=== PATIENT | female | born 1960 | race Hispanic/Latino ===

== ENCOUNTER 2017-05-26 18:46 | Emergency (ER) | payer OTHER ==
[~2017-05-26 18:46] MED LIST: ACET-2247 PO; AMLO10TA4 PO; ASCO100T12 PO; CALC-190 PO; DOCU50CA13 PO; MULT-264 PO; TRAM50TA4 PO
[2017-05-26] MEDS ORDERED: SULFAMETHOX-TMP DS 800/160 TAB ONE (19:31)
== END 2017-05-26 20:17 | disposition home or self-care (01) ==
LOC: EDH 18:46
DX: L03.818 Cellulitis of other sites (principal); I10 Essential (primary) hypertension; Z90.710 Acquired absence of both cervix and uterus; Z88.6 Allergy status to analgesic agent; Z98.890 Other specified postprocedural states

== ENCOUNTER → 2021-06-27 | Outpatient (CLI) | payer OTHER | END | disposition home or self-care (01) | LOC: RAH 10:56 | PROVIDERS: ATTEND Family Medicine | DX: Z12.31 Encounter for screening mammogram for malignant neoplasm of breast (principal) | CPT/HCPCS: 77067 ==

== ENCOUNTER → 2022-01-02 | Outpatient (CLI) | payer OTHER | END | disposition home or self-care (01) | LOC: RAH 12:56 | PROVIDERS: ATTEND Family Medicine | DX: Z12.31 Encounter for screening mammogram for malignant neoplasm of breast (principal); E78.2 Mixed hyperlipidemia; I10 Essential (primary) hypertension; E11.9 Type 2 diabetes mellitus without complications; E66.9 Obesity, unspecified; I11.9 Hypertensive heart disease without heart failure; Z13.820 Encounter for screening for osteoporosis | CPT/HCPCS: 93306; 93925 ==

== ENCOUNTER → 2022-01-09 | Outpatient (CLI) | payer OTHER | END | disposition home or self-care (01) | LOC: RAH 08:30 | PROVIDERS: ATTEND Family Medicine | DX: Z00.00 Encounter for general adult medical examination without abnormal findings (principal); E11.9 Type 2 diabetes mellitus without complications; E78.2 Mixed hyperlipidemia; I10 Essential (primary) hypertension; M06.4 Inflammatory polyarthropathy; Z12.31 Encounter for screening mammogram for malignant neoplasm of breast; Z13.220 Encounter for screening for lipoid disorders | CPT/HCPCS: 72040; 73130; 76770; 93975 ==

== ENCOUNTER → 2022-01-16 | Outpatient (CLI) | payer OTHER | END | disposition home or self-care (01) | LOC: LAB 09:45 | PROVIDERS: ATTEND Internal Medicine | DX: M06.4 Inflammatory polyarthropathy (principal) | CPT/HCPCS: 36415; 85651; 86140; 86200; 86431 ==

== ENCOUNTER 2022-04-18 06:38 | Emergency (ER) | payer OTHER ==
[~2022-04-18] VITALS: Ht 170.2 cm; Wt 102.1 kg
[2022-04-18] MEDS ORDERED: ALBUTEROL 0.083% 2.5 MG/3 ML INH IH STA (07:16)
[2022-04-18] MEDS ORDERED: DEXAMETHASONE SOD PHOSPHATE 4 MG/ML 1ML VIAL IM STA (07:16)
[2022-04-18] MEDS ORDERED: ACETAMINOPHEN 500 MG TABLET PO STA (08:01)
[2022-04-18] MEDS ORDERED: AMOX500C2 PO (08:22)
[2022-04-18] MEDS ORDERED: FLUT16H NASAL (08:23)
[2022-04-18] MEDS ORDERED: LORA10TA7 PO (08:23)
[2022-04-18 08:52] VITALS: BP 151/76
== END 2022-04-18 08:56 | disposition home or self-care (01) ==
LOC: EDH 06:38
DX: J32.9 Chronic sinusitis, unspecified (principal); E11.9 Type 2 diabetes mellitus without complications; E78.00 Pure hypercholesterolemia, unspecified; I10 Essential (primary) hypertension; Z79.52 Long term (current) use of systemic steroids; Z88.6 Allergy status to analgesic agent; Z79.899 Other long term (current) drug therapy; Z20.822 Contact with and (suspected) exposure to COVID-19
CPT/HCPCS: 99283; 87635; 87880; 87804 ×2; 96372; J1100; C9803

== ENCOUNTER → 2022-06-12 | Outpatient (CLI) | payer OTHER ==
[~2022-06-12] MED LIST changes: +AMOX500C2 PO; +FLUT16H NASAL; +LORA10TA7 PO
[2022-06-12 12:24] LABS: HEMOGLOBIN A1C 5.7 % (4.0-6.0)
[2022-06-12 12:28] LABS: ALBUMIN 3.8 g/dL (3.5-5.0); CREATININE 0.6 mg/dL (0.5-1.5); POTASSIUM 4.2 mmol/L (3.5-5.1); TOTAL PROTEIN, SERUM 7.5 g/dL (6.0-8.3)
== END | disposition home or self-care (01) ==
LOC: LAB 11:32
PROVIDERS: ATTEND Family Medicine
DX: Z00.00 Encounter for general adult medical examination without abnormal findings (principal); Z13.820 Encounter for screening for osteoporosis; I10 Essential (primary) hypertension; E11.9 Type 2 diabetes mellitus without complications; E78.2 Mixed hyperlipidemia; M25.50 Pain in unspecified joint; M43.16 Spondylolisthesis, lumbar region; M54.59 Other low back pain; M54.2 Cervicalgia; Z68.35 Body mass index [BMI] 35.0-35.9, adult; Z12.31 Encounter for screening mammogram for malignant neoplasm of breast; Z78.0 Asymptomatic menopausal state
CPT/HCPCS: 36415; 72050; 72114; 80053; 80061; 83036

== ENCOUNTER → 2022-07-18 | Outpatient (CLI) | payer OTHER | END | disposition home or self-care (01) | LOC: RAH 13:22 | PROVIDERS: ATTEND Pain Medicine Interventional Pain Medicine | DX: M50.122 Cervical disc disorder at C5-C6 level with radiculopathy (principal) | CPT/HCPCS: 72141 ==